=== PATIENT | male | born 1985 | race Caucasian/White ===

== ENCOUNTER 2016-11-12 02:18 | Emergency (ER) | payer OTHER ==
[~2016-11-12] VITALS: Ht 185.4 cm; Wt 111.8 kg
[2016-11-12 02:21] VITALS: TEMP 36.6; Ht 185.4 cm; Wt 111.8 kg
[2016-11-12] MEDS ORDERED: DIPHTHERIA/TETANUS/PERTUSSIS 0.5 ML SYR/VIAL IM. ONE (02:45)
[2016-11-12 02:54] LABS: BASO % 0.1 %; BASO ABS # 0.01 K/uL (0-0.2); COMPLETE YES; HEMATOCRIT 44.7 % (42-52); IG% 0.2 %; LYMPH % 32.7 %; MEAN CELL VOLUME 93.3 fL (80-100); MEAN CORPUSCULAR HEMOGLOBIN 33.2 pg (25-34); MEAN CORPUSCULAR HGB CONC 35.6 g/dl (32-36); MEAN PLATELET VOLUME 9.3 fL (7.4-10.4); MONO % 11.8 %; NEUT % 52.2 %; PLATELET COUNT 334 K/uL (130-400); RED BLOOD COUNT 4.79 M/uL (4.7-6.1); WHITE BLOOD COUNT 8.57 K/uL (4.8-10.8)
[2016-11-12 02:59] VITALS: O2SAT 97
[2016-11-12 03:11] LABS: ALT/SGPT 132 U/L (12-78); AST/SGOT 59 U/L (15-37); BLOOD UREA NITROGEN 12 mg/dl (7-18); BUN/CREATININE RATIO 11.8 (10-20); CALCIUM 8.6 mg/dl (8.5-10.1); CARBON DIOXIDE 31 mmol/L (21-32); CHLORIDE 107 mmol/L (98-107); GLUCOSE 86 mg/dl (70-99); POTASSIUM 3.7 mmol/L (3.5-5.1); SODIUM 143 mmol/L (136-145)
[2016-11-12 03:22] LABS: ALKALINE PHOSPHATASE 91 U/L (45-117)
[2016-11-12] MEDS ORDERED: BUPR1SUB23 PO (03:39)
[2016-11-12] MEDS ORDERED: PRLSR20 PO (03:39)
[2016-11-12] MEDS ORDERED: TEMA15CA4 PO (03:39)
[2016-11-12] MEDS ORDERED: RTL20 PO (03:39)
[2016-11-12 03:54] LABS: LYME DISEASE AB IGG NEG (NEG)
[2016-11-12 04:12] LABS: LYME DISEASE AB IGM POS (NEG)
[2016-11-12] MEDS ORDERED: DOXYCYCLINE HYCLATE 100 MG CAP PO ONE (04:30)
[2016-11-12 04:49] LABS: URINE APPEARANCE CLEAR (CLEAR); URINE BILIRUBIN NEG (NEG); URINE COLOR DK YELLOW; URINE NITRITE NEG (NEG); URINE PH 7.5 (4.5-7.5); URINE SPECIFIC GRAVITY 1.034 (1.000-1.030); UROBILINOGEN NEG (NEG)
--- NOTE | 2016-11-12 04:56 | EMERGENCY ROOM VISIT NOTE ---
History First contact with patient: 02:27 Chief Complaint: BITE Stated Complaint: BITE ON LEG(TICK/SPIDER),AND CRISTOPHER NAIL PUNC/HAND History of Present Illness The patient is a 31 year old male who presents to the Emergency Room with complaints of fatigue, difficulty sleeping, lack of energy for the past several months who thinks he might of been bitten by a tick and the other day he accidentally got Punctured with a resting nail since he is rebuilding his house. 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 He has not followed up recently with his assistant wrestling coach. He states he had a normal stress test in the past. No ablation. Patient denies chest pain, dyspnea, fever, chills, nausea, vomiting, diarrhea. Review of Systems See HPI for pertinent positives & negatives. A total of 10 systems reviewed and were otherwise negative. Past Medical/Surgical History WPW Social History Smoking Status: Current Every Day Smoker Drug Use: none Marital Status: single Housing Status: lives alone Occupation Status: student Current/Historical Medications Scheduled Buprenorphine Hcl-Naloxone Hcl (Suboxone 8-2 Mg), 8 MG PO BID Methylphenidate (Ritalin), 20 MG PO TID Omeprazole (Prilosec), 20 MG PO DAILY Scheduled PRN Temazepam (Restoril), 15 MG PO HS PRN for Sleep Allergies Coded Allergies: Cat Dander (Verified Allergy, Mild, SNEEZING,EYES PUFFY, 11/12/16) Physical Exam Vital Signs Date Time Temp Pulse Resp B/P Pulse Ox O2 Delivery O2 Flow Rate FiO2 11/12/16 04:16 87 20 133/94 98 Room Air 11/12/16 03:05 93 11/12/16 03:00 82 14 146/76 97 Room Air 91 145/93 94 130/81 11/12/16 02:59 97 Room Air 11/12/16 02:21 36.6 105 16 132/87 96 Room Air Physical Exam VITALS: Vitals are noted on the nurse's note and reviewed by myself. Vital signs stable. GENERAL: Anxious-appearing male, in no acute distress, nondiaphoretic, well- developed well-nourished. SKIN: Right hand with small puncture wound in between the first and second web space with no obvious signs of infection, right thigh with small bug bite is within excoriated that is erythematous concerning for secondary cellulitis The rest of the skin was without rashes, erythema, edema, or bruising. There is no tenting of the skin. Capillary reflex less than 2 seconds. HEAD: Normocephalic atraumatic. EARS: External auditory canals clear, tympanic membranes pearly matute without erythema or effusion bilaterally. EYES: Pupils equal round and reactive to light and accommodation. Conjunctivae without injection, sclerae without icterus. Extraocular movements intact. NOSE: Patent, turbinates without inflammation or discharge. MOUTH: Mucous membranes moist. Pharynx without erythema or exudate. Uvula midline. Airway patent. Tongue does not deviate. NECK: Supple without nuchal rigidity. No lymphadenopathy. No thyromegaly. Cervical spine is nontender. No JVD. HEART: Regular rate and rhythm without murmurs gallops or rubs. LUNGS: Clear to auscultation bilaterally without wheezes, rales or rhonchi. No dullness to percussion. No retractions or accessory muscle use. ABDOMEN: Positive bowel sounds x 4. Normal tympanic percussion. Soft, nontender, without masses or organomegaly. Fountain sign negative. No guarding or rebound tenderness. MUSCULOSKELETAL: No muscle atrophy, erythema, or edema noted. 5 out of 5 strength throughout. Extremities nontender to palpation. NEURO: Patient was alert and oriented to person place and time. Normal sensation to light and sharp touch. No focal neurological deficits. Medical Decision & Procedures Laboratory Results 11/12/16 02:40 Red Blood Count 4.79, Mean Corpuscular Volume 93.3, Mean Corpuscular Hemoglobin 33.2, Mean Corpuscular Hemoglobin Concent 35.6, Mean Platelet Volume 9.3, Neutrophils (%) (Auto) 52.2, Lymphocytes (%) (Auto) 32.7, Monocytes (%) (Auto) 11.8, Eosinophils (%) (Auto) 3.0, Basophils (%) (Auto) 0.1, Neutrophils # (Auto ) 4.47, Lymphocytes # (Auto) 2.80, Monocytes # (Auto) 1.01, Eosinophils # (Auto ) 0.26, Basophils # (Auto) 0.01 11/12/16 02:40 Test 11/12/16 02:40 11/12/16 02:50 11/12/16 04:15 11/12/16 04:26 White Blood Count 8.57 K/uL (4.8-10.8) Red Blood Count 4.79 M/uL (4.7-6.1) Hemoglobin 15.9 g/dL (14.0-18.0) Hematocrit 44.7 % (42-52) Mean Corpuscular Volume 93.3 fL (80-100) Mean Corpuscular Hemoglobin 33.2 pg (25-34) Mean Corpuscular Hemoglobin Concent 35.6 g/dl (32-36) Platelet Count 334 K/uL (130-400) Mean Platelet Volume 9.3 fL (7.4-10.4) Neutrophils (%) (Auto) 52.2 % Lymphocytes (%) (Auto) 32.7 % Monocytes (%) (Auto) 11.8 % Eosinophils (%) (Auto) 3.0 % Basophils (%) (Auto) 0.1 % Neutrophils # (Auto) 4.47 K/uL (1.4-6.5) Lymphocytes # (Auto) 2.80 K/uL (1.2-3.4) Monocytes # (Auto) 1.01 K/uL (0.11-0.59) Eosinophils # (Auto) 0.26 K/uL (0-0.5) Basophils # (Auto) 0.01 K/uL (0-0.2) RDW Standard Deviation 44.9 fL (36.4-46.3) RDW Coefficient of Variation 13.0 % (11.5-14.5) Immature Granulocyte % (Auto) 0.2 % Immature Granulocyte # (Auto) 0.02 K/uL (0.00-0.02) Anion Gap 5.0 mmol/L (3-11) Est Creatinine Clear Calc Drug Dose 141.5 ml/min Estimated GFR () 116.5 Estimated GFR (Non- 100.6 BUN/Creatinine Ratio 11.8 (10-20) Calcium Level 8.6 mg/dl (8.5-10.1) Total Bilirubin 0.3 mg/dl (0.2-1) Direct Bilirubin < 0.1 mg/dl (0-0.2) Aspartate Amino Transf (AST/SGOT) 59 U/L (15-37) Alanine Aminotransferase (ALT/SGPT) 132 U/L (12-78) Alkaline Phosphatase 91 U/L (45-117) Total Protein 7.6 gm/dl (6.4-8.2) Albumin 4.3 gm/dl (3.4-5.0) Thyroid Stimulating Hormone (TSH) 2.300 uIu/ml (0.300-4.500) Lyme Disease IgG Antibody NEG (NEG) Medications Administered Medications (Trade) Dose Ordered Sig/West Route Start Time Stop Time Status Last Admin Dose Admin Diphtheria/ Pertussis/Tetanus Vacc (Adacel Inj) 0.5 ml ONCE ONCE IM. 11/12/16 02:45 11/12/16 02:46 DC 11/12/16 02:52 0.5 ML Doxycycline Hyclate (Vibramycin Cap) 100 mg ONE ONCE PO 11/12/16 04:30 11/12/16 04:31 DC 11/12/16 04:30 100 MG ED Course Prior records/ancillary studies reviewed and summarized above. Nursing notes reviewed. The patient's history was concerning for fatigue, lack of energy, stress, possible tick bite and puncture wound. Differential diagnosis: Etiologies such as metabolic, infection, hypo/hyperglycemia, electrolyte abnormalities, cardiac sources, intracerebral event, toxicologic, neurologic, as well as others were entertained. Physical examination: As above. ER treatment provided: IV Lock Wound care by nursing, tetanus, Augmentin On reassessment the patient felt better. Diagnostics interpretation by me: ECG: Normal sinus, short ID interval, delta wave, no acute ST-T wave changes, rate of 97. Impression normal sinus rhythm with WPW interpreted by myself The labs revealed a Lyme's test positive and sent for Western blot, hepatitis panel pending Stable H&H Imaging studies: Chest x-ray with no acute consolidation, pneumothorax or free air per my interpretation Exam and history seem consistent with possible Lyme's disease. Patient was neurovascularly and neurologically intact. He was strongly encouraged to follow -up with his assistant wrestling coach for his WPW. He was started on antibiotics. He was advised follow-up family care for test results. Patient did not want to wait for hepatitis screen and states he sees family doctor for this. He was advised to return to the ER immediately for headache, fevers, neck stiffness, worsening signs or symptoms or as needed. By the evaluation outlined above emergent etiologies such as infection, electrolyte abnormalities, cardiac sources, intracerebral event, toxologic, neurologic, abnormalities blood glucose, metabolic, as well as others were deemed relatively unlikely. The pt informed about the findings as listed above. All questions were answered and pleased with the treatment. Return instructions were outlined and the patient was discharged in stable condition. Outpatient prescription management: Doxycycline Referral: The patient was referred back to his assistant wrestling coach, GI doctor and primary care physician for follow-up in 2 to 3 days for a recheck of the current condition. Case reviewed with my attending. Medical Decision As above Impression Primary Impression: Lyme disease Additional Impressions: Fatigue Mnsvo-Btqxgwxty-Sbebe syndrome Departure Information Dispostion Home / Self-Care Condition GOOD Referrals No Doctor, Assigned (PCP) Patient Instructions My [facility] Additional Instructions Antibiotic ointment and bandage to the areas until healed. Follow up with family doctor or return for any signs of infection (increasing redness, swelling , drainage, or fever). Keep covered when in sun until fully healed then SPF 50 or higher until scar healed. Doxycycline 100mg: Take one pill twice daily for 14 days for your infection. Take with food, but avoid dairy. Avoid prolonged sun exposure since this medication makes you temporarily more susceptible to sunburns. All antibiotics can cause diarrhea. If this occurs and you feel worse or it does not resolve in 1-2 days follow up with your doctor or return to the Emergency Department as this could be signs of serious underlying problems. Any medication can cause an allergic reaction, stop the pills immediately and return to the ER for rash, hives, breathing difficulties, or swelling. Ibuprofen(Motrin, Advil) may be used for fever or pain. Use 600mg every six hours as needed. Take with food. Avoid using more than 2400mg in a 24 hour period. Do not use 2400mg per day for more than three consecutive days without physician direction. Prolonged inappropriate use can lead to stomach upset or ulcers. (AND/OR) Acetaminophen(Tylenol) may be used for fever or pain. Use 1000mg every six hours as needed. Avoid using more than 3000mg in a 24 hour period. Warm compresses to the affected area 4 times daily for 15-20 minutes. Rest and drink plenty of fluids. Continue current medications. Return to the ER for severe pain, persistent fevers, spreading redness, or any worsening of your condition. Follow up with your primary physician within 2-3 days for a recheck of the current condition and for lab test results and hepatitis. Follow up with your assistant wrestling coach region repeat IV and your GI Problem Qualifiers
[2016-11-12] MEDS ORDERED: DOXY100C2 PO (04:59)
[2016-11-12 05:06] VITALS: BP 151/83; PULSE 88; O2SAT 98
[2016-11-12 05:13] LABS: PARTIAL THROMBOPLASTIN RATIO 1.1; PROTHROMBIN TIME (PATIENT) 10.7 SECONDS (9.0-12.0)
[2016-11-12 05:16] LABS: MANUAL MICROSCOPIC REQUIRED? NO; REVIEW REQ? NO; SULFASALICYLIC ACID NEG (NEG)
--- NOTE | 2016-11-12 07:12 | DIAGNOSTIC IMAGING REPORT ---
CHEST 2 VIEWS ROUTINE CLINICAL HISTORY: Fatigue. COMPARISON STUDY: No previous studies for comparison. FINDINGS: Lung volumes are mildly increased. There is no consolidation to suggest pneumonia and there is no evidence of pulmonary edema. Cardiac size is normal. Mediastinal contours are normal. IMPRESSION: 1. No acute cardiopulmonary findings. 2. Mild lung hyperexpansion. Electronically signed by: Conrado Worrell M.D. 11/12/2016 7:10 AM Dictated Date/Time: 11/12/2016 7:09 AM
[2016-11-18 20:46] LABS: 18KDIGG BAND NONREACTIVE (NONREACTIVE); 23KDIGG BAND NONREACTIVE (NONREACTIVE); 23KDIGM BAND REACTIVE (NONREACTIVE); 28KDIGG BAND NONREACTIVE (NONREACTIVE); 30KDIGG BAND NONREACTIVE (NONREACTIVE); 39KDIGG BAND NONREACTIVE (NONREACTIVE); 39KDIGM BAND NONREACTIVE (NONREACTIVE); 41KDIGG BAND REACTIVE (NONREACTIVE); 41KDIGM BAND NONREACTIVE (NONREACTIVE); 45KDIGG BAND NONREACTIVE (NONREACTIVE); 58KDIGG BAND NONREACTIVE (NONREACTIVE); 66KDIGG BAND NONREACTIVE (NONREACTIVE); 93KDIGG BAND NONREACTIVE (NONREACTIVE)
== END 2016-11-12 05:07 | disposition home or self-care (01) ==
LOC: C.EDB 02:19
DX: A69.20 Lyme disease, unspecified (principal); R53.83 Other fatigue; I45.6 Pre-excitation syndrome; Z23 Encounter for immunization; F17.200 Nicotine dependence, unspecified, uncomplicated; Z79.899 Other long term (current) drug therapy; Z91.09 Other allergy status, other than to drugs and biological substances

== ENCOUNTER → 2017-10-25 | Day surgery (SDC) | payer OTHER ==
[2017-09-29 14:50] VITALS: BMI 31.0
--- NOTE | 2017-09-30 13:23 | Progress Note ---
Progress Note Date of Service Sep 30, 2017. Progress Note Spoke to patient via phone about his WPW. Patient denies syncopal episodes or chest pain, but states that he has been unable to work out secondary to his umbilical hernia. Patient states he has not seen a hospitality associate in years. Anesthesia is requesting that the patient have cardiac clearance prior to planned surgery. Dr. Conley's office was contacted and will set up a referral to cardiology. I spoke to Dr. Conley and let him know that the case would need to be postponed. I spoke to the patient who was upset but is willing to reschedule the surgery after seeing cardiology. Oksana Jim MD, PhD
[2017-10-19 13:51] VITALS: BMI 31.0
[~2017-10-25] VITALS: Ht 188 cm; Wt 109.1 kg
[~2017-10-25] MED LIST: ASPCH81X PO; ATROPINE SULFATE 0.1 MG/ML 5ML SYR IV PRN; BUPIVACAINE 0.5 % 5 MG/1 ML MPF 30ML VIAL ONE; CEFAZOLIN 2000MG IV PUSH 15 ML IV SCH; CEFAZOLIN SOD 1 GM VIAL ONE; DEXAMETHASONE SOD INJ 4 MG/ML VIAL ONE; EpHEDrine SULFATE INJ 50 MG/ML AMP IV PRN; FENTANYL CITRATE INJ 50 MCG/1 ML 2 ML VIAL IV PRN; FENTANYL CITRATE INJ 50 MCG/1 ML 2 ML VIAL ONE; FLUMAZENIL 0.1 MG/1 ML 10 ML VIAL IV PRN; HYDROmorphone INJ 0.5 MG/0.5 ML SYR ONE; HYDROmorphone INJ 2 MG/ML SYR/VIAL IV PRN; LABETALOL HCL IV 5 MG/ML 20ML IV PRN; LABETALOL HCL IV 5 MG/ML 20ML IV STA; LACTATED RINGER'S 1000ML 1,000 ML IV SCH; LIDOCAINE HCL 1% 20 ML VIAL ONE; LIDOCAINE HCL 2% 2 ML VIAL (20MG/ML) ONE; MIDAZOLAM HCL 1 MG/ML 2ML VIAL ONE; MULT-506 PO; NALOXONE HCL 0.4 MG/1 ML VIAL/CARP IV PRN; ONDANSETRON INJ 2 MG/ML 2 ML VIAL IV PRN; ONDANSETRON INJ 2 MG/ML 2 ML VIAL ONE; OXYC1TAB3 PO; OXYCODONE HCL IR 5 MG TAB (IMMEDIATE RELEASE) PO PRN; PATIENT'S HEIGHT AND/OR WEIGHT NEEDED SCH; PRLSR20 PO; PROMETHAZINE HCL INJ 12.5 MG in SODIUM CHLORIDE 0.9% 50ML 50 ML IV PRN; PROPOFOL IV EMULSION 10 MG/ML 20 ML VIAL ONE
[2017-10-25 05:42] VITALS: BP 162/107; PULSE 104; TEMP 37.2; O2SAT 96; Ht 188 cm; Wt 109.1 kg
--- NOTE | 2017-10-25 06:47 | History & Physical Bridge Note ---
H&P Re-Evaluation Bridge Note: I have examined the patient, reviewed the History & Physical and in the interval since the performance of the History & Physical I have noted the following changes of clinical significance: No changes noted
--- NOTE | 2017-10-25 07:48 | [facility] Operative Report ---
Operative Report Operative Date October 25, 2017. Pre-Operative Diagnosis Umbilical Hernia Post-Operative Diagnosis Same Procedure(s) Performed Open Umbilical Hernia Repair Surgeon Dr Conley Research Analyst Surgeon(s) None Estimated Blood Loss 10ML Findings 1.5 cm defect , 4 cm sac Specimens A. Hernia sac and contents Drains None Anesthesia Type General Complication(s) none Disposition Recovery Room / PACU I attest to the content of the Intraoperative Record and any orders documented therein. Any exceptions are noted below.
--- NOTE | 2017-10-25 07:55 | Discharge Instructions ---
Discharge Instructions Date of Service October 25, 2017. Visit Reason for Visit: Umbilical Hernia Discharge Discharge Diagnosis / Problem: umbilical hernia Discharge Goals Goal(s): Decrease discomfort, Improve function, Improve disease control Activity Recommendations Activity Limitations: as noted below Lifting Limitations: no more than 25 pounds (for 4 weeks) Exercise/Sports Limitations: until after follow-up appointment May Resume Sexual Activity: when tolerated Shower/Bathe: tomorrow Driving or Machine Use: resume 3 days after discharge Anesthesia . Post Anesthesia Instructions: If you have had General Anesthesia or IV Sedation: * Do not drive today. * Resume driving when surgeon permits. * Do not make important decisions or sign legal documents today. * Call surgeon for: 1. Temperature elevations greater than 101 degrees F. 2. Uncontrollable pain. 3. Excessive bleeding. 4. Persistent nausea and vomiting. 5. Medication intolerance (nausea, vomiting or rash). * For nausea and vomiting use only clear liquids such as: tea, soda, bouillon until nausea subsides, then gradually increase diet as tolerated. * If you have any concerns or questions, call your surgeon's office. If physician is unavailable and it is an emergency, call 911 or go to the nearest emergency room. . Instructions / Follow-Up Instructions / Follow-Up SPECIAL CARE INSTRUCTIONS: * Cover incisions and change daily for comfort/drainage. * May use ibuprofen for pain as tolerated. * Expect some swelling and bruising. Call your doctor if: * Temperature above 101 degrees * Pain not relieved by pain medicine ordered * There is increased drainage or redness from any incision * You have any unanswered questions or concerns [phone]. FOLLOW UP VISIT: If not already scheduled, please call the office for a follow-up visit. for next week- checkup, some suture removal OFFICE PHONE NUMBER: Dr. Conley Office Diet Recommendations Recommended Home Diet: resume previous diet Procedures Procedures Performed: Open Umbilical Hernia Repair Pending Studies Studies pending at discharge: no Medical Emergencies . Who to Call and When: Medical Emergencies: If at any time you feel your situation is an emergency, please call 911 immediately. . Non-Emergent Contact Non-Emergency issues call your: Primary Care Provider, Surgeon . . "Provider Documentation" section prepared by Jordon Conley. .
--- NOTE | 2017-10-25 09:11 | Anesthesiology Progress Note ---
Anesthesia Post Op Note Date & Time October 25, 2017 at 09:11 Vital Signs Pain Intensity: 7.5 Vital Signs Past 12 Hours Date Time Temp Pulse Resp B/P (MAP) Pulse Ox O2 Delivery O2 Flow Rate FiO2 10/25/17 08:44 36.9 91 16 139/100 (105) 95 Nasal Cannula 3 10/25/17 08:30 132/102 10/25/17 08:29 93 19 10/25/17 08:29 93 19 95 10/25/17 08:25 141/101 10/25/17 08:24 92 16 94 10/25/17 08:24 92 16 10/25/17 08:21 143/105 10/25/17 08:19 93 26 10/25/17 08:19 92 26 95 10/25/17 08:15 152/90 10/25/17 08:14 92 22 150/103 96 10/25/17 08:14 92 22 10/25/17 08:10 140/102 10/25/17 08:09 90 15 10/25/17 08:09 90 15 95 10/25/17 08:05 147/97 10/25/17 08:04 92 18 10/25/17 08:04 92 18 97 10/25/17 08:00 141/104 10/25/17 07:59 93 13 10/25/17 07:59 92 13 95 10/25/17 07:55 139/89 10/25/17 07:54 36.3 88 14 139/89 (96) 95 Oxymask 10 10/25/17 07:54 89 17 10/25/17 07:54 88 17 94 10/25/17 05:42 37.2 104 18 162/107 (125) 96 Room Air Notes Mental Status: alert / awake / arousable, participated in evaluation Pt Amnestic to Procedure: Yes Nausea / Vomiting: adequately controlled Pain: adequately controlled Airway Patency, RR, SpO2: stable & adequate BP & HR: stable & adequate Hydration State: stable & adequate Anesthetic Complications: no major complications apparent
[2017-10-25 09:38] VITALS: BP 128/88; PULSE 91; TEMP 37.1; O2SAT 92
[2017-10-25 10:08] VITALS: BP 143/99; PULSE 101; TEMP 37.1; O2SAT 92
--- NOTE | 2017-10-25 10:55 | OPERATIVE REPORT ---
DATE OF OPERATION: 10/25/2017 NAME OF OPERATION: Open umbilical hernia repair. PREOPERATIVE DIAGNOSIS: Umbilical hernia. POSTOPERATIVE DIAGNOSIS: Umbilical hernia with 1.5 cm defect and 4 cm sac. STAFF SURGEON: Jordon Conley MD ANESTHESIA: General LMA with 1% plain lidocaine. PROCEDURE: The patient was brought in the operating room and placed on the operating table in supine position. Pneumatic stockings, orogastric tube were placed. His abdomen was prepped and draped in usual fashion. 0.5% plain Marcaine was used to anesthetize skin and subcutaneous tissue. Incision was made just above the umbilicus, carrying dissection down, identifying the hernia sac which was approximately 4 cm in diameter. It was opened; it contained what appeared to be preperitoneal adipose tissue, part of which was excised and then the remainder reduced. The defect was approximately 1.5 cm in diameter. It was closed using interrupted 0 Ethibond suture. The umbilicus was reattached to the fascia using 2-0 chromic suture and then the subcutaneous tissue reapproximated using 2-0 plain suture and then the skin reapproximated using 5-0 Prolene suture. The patient was transferred to recovery room in stable condition. I attest to the content of the Intraoperative Record and any orders documented therein. Any exception s are noted below.
== END | disposition home or self-care (01) ==
LOC: C.ACU 05:13
PROVIDERS: ATTEND Surgery
DX: K42.9 Umbilical hernia without obstruction or gangrene (principal); K21.9 Gastro-esophageal reflux disease without esophagitis; J45.909 Unspecified asthma, uncomplicated; F32.9 Major depressive disorder, single episode, unspecified; F19.10 Other psychoactive substance abuse, uncomplicated; E78.5 Hyperlipidemia, unspecified; E66.9 Obesity, unspecified; B19.20 Unspecified viral hepatitis C without hepatic coma; I45.6 Pre-excitation syndrome; Z81.8 Family history of other mental and behavioral disorders; Z84.89 Family history of other specified conditions; Z80.0 Family history of malignant neoplasm of digestive organs; F17.200 Nicotine dependence, unspecified, uncomplicated; Z79.82 Long term (current) use of aspirin; Z79.899 Other long term (current) drug therapy

== ENCOUNTER 2017-10-31 01:47 | Emergency (ER) | payer OTHER ==
[~2017-10-31] VITALS: Ht 182.9 cm; Wt 10.0 kg
[~2017-10-31 01:47] MED LIST changes: -ATROPINE SULFATE 0.1 MG/ML 5ML SYR IV PRN; -BUPIVACAINE 0.5 % 5 MG/1 ML MPF 30ML VIAL ONE; -CEFAZOLIN 2000MG IV PUSH 15 ML IV SCH; -CEFAZOLIN SOD 1 GM VIAL ONE; -DEXAMETHASONE SOD INJ 4 MG/ML VIAL ONE; -EpHEDrine SULFATE INJ 50 MG/ML AMP IV PRN; -FENTANYL CITRATE INJ 50 MCG/1 ML 2 ML VIAL IV PRN; -FENTANYL CITRATE INJ 50 MCG/1 ML 2 ML VIAL ONE; -FLUMAZENIL 0.1 MG/1 ML 10 ML VIAL IV PRN; -HYDROmorphone INJ 0.5 MG/0.5 ML SYR ONE; -HYDROmorphone INJ 2 MG/ML SYR/VIAL IV PRN; -LABETALOL HCL IV 5 MG/ML 20ML IV PRN; -LABETALOL HCL IV 5 MG/ML 20ML IV STA; -LACTATED RINGER'S 1000ML 1,000 ML IV SCH; -LIDOCAINE HCL 1% 20 ML VIAL ONE; -LIDOCAINE HCL 2% 2 ML VIAL (20MG/ML) ONE; -MIDAZOLAM HCL 1 MG/ML 2ML VIAL ONE; -NALOXONE HCL 0.4 MG/1 ML VIAL/CARP IV PRN; -ONDANSETRON INJ 2 MG/ML 2 ML VIAL IV PRN; -ONDANSETRON INJ 2 MG/ML 2 ML VIAL ONE; -OXYCODONE HCL IR 5 MG TAB (IMMEDIATE RELEASE) PO PRN; -PATIENT'S HEIGHT AND/OR WEIGHT NEEDED SCH; -PROMETHAZINE HCL INJ 12.5 MG in SODIUM CHLORIDE 0.9% 50ML 50 ML IV PRN; -PROPOFOL IV EMULSION 10 MG/ML 20 ML VIAL ONE
[2017-10-31 01:48] VITALS: TEMP 36.6; Ht 182.9 cm; Wt 10.0 kg
[2017-10-31] MEDS ORDERED: SODIUM CHLORIDE 0.9% 1000ML 1,000 ML IV STA (02:01)
[2017-10-31] MEDS ORDERED: MoRPHine SULFATE 10 MG/ML CARP/VIAL IV STA (02:01)
[2017-10-31] MEDS ORDERED: OPTIRAY 320 IV PRN (02:15)
--- NOTE | 2017-10-31 02:24 | EMERGENCY ROOM VISIT NOTE ---
History First contact with patient: 01:51 Chief Complaint: ABDOMINAL PAIN Stated Complaint: ABD BLOATING/PAIN S/P THORACIC SURGERY Nursing Triage Summary: Pt has abdominal surgery on wednesday. Pt states since the surgery his abdomen has been becoming distended, firm and he has severe pain. Pt has no appetite, nausea. History of Present Illness The patient is a 32 year old male who presents to the Emergency Room with complaints of abdominal pain. The patient reports that 5 days ago, he had an umbilical hernia repair. He states that he has had pain in his abdomen since then. He reports his abdomen feels very distended. He states he has a sharp pain all over his abdomen and rates the discomfort a 10/10. He has been unable to sleep due to the pain. He has been taking OxyIR but has not had any relief. He also reports that he has been drinking alcohol to try to cope with the pain. The pain is worse when he is walking or moving. He did have a small bowel movement this morning. He feels like he has had decreased urination. He denies any other medical problems. He does report he is currently taking penicillin for a tooth issue. He denies fever/chills, chest pain or shortness of breath. Review of Systems A complete 10 point review of systems was reviewed with the patient with pertinent positives and negatives as per history of present illness. All else were negative. Past Medical/Surgical History Medical Problems: (1) No significant active problems Social History Smoking Status: Current Every Day Smoker Drug Use: none Marital Status: single Housing Status: lives alone Occupation Status: student Current/Historical Medications Scheduled Aspirin (Aspirin Chewable), 81 MG PO DAILY Multivitamin (Multivitamin), 1 TAB PO QAM Omeprazole (Prilosec), 20 MG PO QAM Scheduled PRN Oxycodone Immediate Rel Tab (Roxicodone Ir), 1-2 TAB PO Q6H PRN for Pain Physical Exam Vital Signs Date Time Temp Pulse Resp B/P (MAP) Pulse Ox O2 Delivery O2 Flow Rate FiO2 10/31/17 08:51 106 20 187/114 97 10/31/17 08:00 105 20 10/31/17 05:57 120 18 175/110 98 Room Air 10/31/17 04:05 117 22 149/104 95 Room Air 10/31/17 01:48 36.6 136 20 147/85 95 Room Air Physical Exam VITALS: Vitals are noted on the nurse's note and reviewed by myself. Vital signs stable. GENERAL: This is a 32-year-old male, in no acute distress, nondiaphoretic, well- developed well-nourished. SKIN: There is a well-healing sutured surgical incision just superior to the umbilicus. No surrounding erythema or evidence of infection. MOUTH: Mucous membranes moist. HEART: Regular rate and rhythm without murmurs gallops or rubs. LUNGS: Clear to auscultation bilaterally without wheezes, rales or rhonchi. ABDOMEN: Positive bowel sounds x 4. The abdomen appears distended. There is diffuse abdominal tenderness without any focal tenderness. No guarding or rebound tenderness. NEURO: Patient was alert and oriented to person place and time. Medical Decision & Procedures ER Provider Diagnostic Interpretation: CT ABDOMEN & PELVIS With Contrast: No bowel obstruction or wall thickening Normal appendix Small amount of fluid and gas just deep to the umbilicus. No abscess. Fatty liver Radiologist: Fahad Palacios MD Laboratory Results 10/31/17 02:13 Red Blood Count 4.55, Mean Corpuscular Volume 92.5, Mean Corpuscular Hemoglobin 33.2, Mean Corpuscular Hemoglobin Concent 35.9, Mean Platelet Volume 8.9, Neutrophils (%) (Auto) 54.1, Lymphocytes (%) (Auto) 30.3, Monocytes (%) (Auto) 13.2, Eosinophils (%) (Auto) 1.9, Basophils (%) (Auto) 0.2, Neutrophils # (Auto ) 5.11, Lymphocytes # (Auto) 2.86, Monocytes # (Auto) 1.25, Eosinophils # (Auto ) 0.18, Basophils # (Auto) 0.02 10/31/17 02:13 Test 10/31/17 02:13 White Blood Count 9.45 K/uL (4.8-10.8) Red Blood Count 4.55 M/uL (4.7-6.1) Hemoglobin 15.1 g/dL (14.0-18.0) Hematocrit 42.1 % (42-52) Mean Corpuscular Volume 92.5 fL (80-100) Mean Corpuscular Hemoglobin 33.2 pg (25-34) Mean Corpuscular Hemoglobin Concent 35.9 g/dl (32-36) Platelet Count 284 K/uL (130-400) Mean Platelet Volume 8.9 fL (7.4-10.4) Neutrophils (%) (Auto) 54.1 % Lymphocytes (%) (Auto) 30.3 % Monocytes (%) (Auto) 13.2 % Eosinophils (%) (Auto) 1.9 % Basophils (%) (Auto) 0.2 % Neutrophils # (Auto) 5.11 K/uL (1.4-6.5) Lymphocytes # (Auto) 2.86 K/uL (1.2-3.4) Monocytes # (Auto) 1.25 K/uL (0.11-0.59) Eosinophils # (Auto) 0.18 K/uL (0-0.5) Basophils # (Auto) 0.02 K/uL (0-0.2) RDW Standard Deviation 45.5 fL (36.4-46.3) RDW Coefficient of Variation 13.4 % (11.5-14.5) Immature Granulocyte % (Auto) 0.3 % Immature Granulocyte # (Auto) 0.03 K/uL (0.00-0.02) Anion Gap 7.0 mmol/L (3-11) Est Creatinine Clear Calc Drug Dose 12.9 ml/min Estimated GFR () 95.7 Estimated GFR (Non- 82.6 BUN/Creatinine Ratio 26.1 (10-20) Calcium Level 9.0 mg/dl (8.5-10.1) Total Bilirubin 0.7 mg/dl (0.2-1) Aspartate Amino Transf (AST/SGOT) 157 U/L (15-37) Alanine Aminotransferase (ALT/SGPT) 296 U/L (12-78) Alkaline Phosphatase 135 U/L (45-117) Total Protein 8.9 gm/dl (6.4-8.2) Albumin 4.8 gm/dl (3.4-5.0) Globulin 4.1 gm/dl (2.5-4.0) Albumin/Globulin Ratio 1.2 (0.9-2) Medications Administered Medications (Trade) Dose Ordered Sig/West Route Start Time Stop Time Status Last Admin Dose Admin Sodium Chloride 1,000 ml @ 999 mls/hr Q1H1M STAT IV 10/31/17 02:01 5/13/18 03:01 DC 10/31/17 02:20 999 MLS/HR Morphine Sulfate (MoRPHine SULFATE INJ) 6 mg NOW STAT IV 10/31/17 02:01 10/31/17 02:04 DC 10/31/17 02:20 6 MG ED Course The patient was evaluated as above. Labs were drawn and IV access was obtained. Patient was medicated with 6 mg morphine IV for pain. CT scan was performed and read by fabien as above. The findings were discussed with the patient. He admits that he has been drinking alcohol at home to dull his pain. He repeatedly is stating that he is not a drug seeker. I was advised by nursing staff that the patient is requesting to leave. I spoke with the patient and explained that he would need to wait for a ride or wait for several hours since he received IV narcotics. He is not able to find a ride and will wait until morning for discharge. Discharge instructions were reviewed with the patient. The patient verbalized understanding of my assessment and treatment plan and was discharged home in good condition. Medical Decision Differential diagnosis includes postoperative infection, cellulitis, bowel obstruction, constipation, gastroenteritis, colitis, among others. The patient is a 32-year-old male who presents today complaining of abdominal pain following a hernia surgery. Labs revealed no leukocytosis or concerning anemia. Patient does have significant elevation of his LFTs. I discussed this with the patient and he repeatedly says "don't worry about that." He feels that this is related to his drinking. Upon review of the records, the patient does have history of hepatitis C and I strongly recommended that he follow-up with his primary care provider regarding these findings. A CT scan does not show any evidence of acute intra-abdominal findings. There is no bowel obstruction or abscess. Patient states that the OxyIR has not been adequately controlling his pain because he has a higher tolerance to narcotics than most people. He states he called the office on Wednesday and was aware that they would not give him any further pain medication and seems to be upset about this. He did express that he felt he was being treated like a drug-seeker. I recommended that the patient discontinue the use of alcohol to dull his pain. He was advised to follow-up with his PCP and surgeon. Because the patient was given IV morphine and was unable to find a ride, he was kept here for several hours before discharge. The patient's case was reviewed with Dr. Shah, ED attending physician, who agreed with my assessment and treatment plan. Based on the patient's presentation and work up, I feel the patient is stable for outpatient treatment. The patient was educated to return to the emergency department for any worsening of their current condition or new/concerning symptoms. He will follow up with his PCP and surgeon. Medication Reconcilliation Current Medication List: was personally reviewed by me Blood Pressure Screening Patient's blood pressure: Elevated blood pressure Blood pressure disposition: Elevated BP felt to be situational Impression Primary Impression: Postoperative abdominal pain Departure Information Dispostion Home / Self-Care Condition GOOD Referrals Richard Pathak D.O. (PCP) Jordon Conley M.D. Patient Instructions My [facility] Additional Instructions You have been treated in the Emergency Department for your Abdominal Pain. Laboratory results and imaging studies have ruled out any emergent causes for your abdominal pain which would warrant admission or surgery. For pain control, you can use the following [id number] medicines (if >12 yo): - Regular strength (200 mg/tab) Advil (ibuprofen) 1-2 tabs every 4-6 hours as needed. Do not exceed a dose of 3200 mg per day. Drink plenty of water and stay well hydrated. You may want to take a stool softener to help with regular bowel movements. Your liver function tests were elevated today. You need to follow-up with your primary care provider regarding this. You should avoid Tylenol and alcohol, as these are excreted through your liver. Contact your surgeon to schedule follow-up. Return to the emergency department if your symptoms persist despite treatment plan outlined above or if the following symptoms occur: Worsening pain, vomiting , fevers, or any other new/concerning symptoms.
[2017-10-31 02:54] LABS: BASO % 0.2 %; BASO ABS # 0.02 K/uL (0-0.2); EOS % 1.9 %; EOS ABS # 0.18 K/uL (0-0.5); HEMATOCRIT 42.1 % (42-52); HEMOGLOBIN 15.1 g/dL (14.0-18.0); IG# 0.03 K/uL (0.00-0.02); LYMPH % 30.3 %; LYMPH ABS # 2.86 K/uL (1.2-3.4); MEAN CELL VOLUME 92.5 fL (80-100); MEAN CORPUSCULAR HEMOGLOBIN 33.2 pg (25-34); MEAN CORPUSCULAR HGB CONC 35.9 g/dl (32-36); MEAN PLATELET VOLUME 8.9 fL (7.4-10.4); MONO % 13.2 %; MONO ABS # 1.25 K/uL (0.11-0.59); NEUT % 54.1 %; NEUT ABS # 5.11 K/uL (1.4-6.5); PLATELET COUNT 284 K/uL (130-400); RED CELL DISTRIBUTION WIDTH CV 13.4 % (11.5-14.5); RED CELL DISTRIBUTION WIDTH SD 45.5 fL (36.4-46.3); WHITE BLOOD COUNT 9.45 K/uL (4.8-10.8)
[2017-10-31 03:12] LABS: ALBUMIN 4.8 gm/dl (3.4-5.0); CREATININE 1.17 mg/dl (0.60-1.40); POTASSIUM 3.9 mmol/L (3.5-5.1)
[2017-10-31 03:14] LABS: TOTAL PROTEIN 8.9 gm/dl (6.4-8.2)
[2017-10-31 08:51] VITALS: BP 187/114; PULSE 106; O2SAT 97
--- NOTE | 2017-10-31 09:09 | DIAGNOSTIC IMAGING REPORT ---
ABDOMEN AND PELVIS CT WITH IV CONTRAST CT DOSE: 1060.70 mGy.cm HISTORY: recent umbilical hernia repair, abdominal pain/distention TECHNIQUE: Multiaxial CT images of the abdomen and pelvis were performed following the use of intravenous contrast. A dose lowering technique was utilized adhering to the principles of ALARA. COMPARISON STUDY: None. FINDINGS: The lung bases are clear. No pneumoperitoneum. No pneumatosis. No fractures within the visualized osseous structures. Severe hepatic steatosis. The gallbladder, spleen, adrenal glands, pancreas, and kidneys are unremarkable. No retroperitoneal lymphadenopathy. No pelvic free fluid. Normal bladder. Suboptimal evaluation for bowel pathology due to the lack of intravenous and oral contrast. However, there is no definite bowel wall thickening or obstruction. Moderate well-formed stool seen within the ascending colon and transverse colon. Normal fluid and gas subcutaneous fat deep to the umbilicus. This measures 2.7 cm. Mild focal fat stranding within the omentum at the level of the umbilicus. This may represent fat necrosis related to postoperative change. There is skin thickening at the periumbilical location. No evidence for an umbilical hernia. Normal appendix. IMPRESSION: 1. Focal periumbilical skin thickening with a 2.7 cm gas and fluid collection within the subcutaneous fat deep to the umbilicus. There is also mild local fat stranding at the omentum deep to the umbilicus suggestive of fat necrosis. These findings favor recent postoperative change. However, a superimposed infection cannot be excluded. The 2.7 cm gas and fluid collection within the subcutaneous fat favors postoperative change given the lack of a surrounding enhancing wall. However, a developing abscess cannot be excluded. 2. Severe hepatic steatosis. 3. No evidence for a ventral hernia at this time. Electronically signed by: Dank Aquino M.D. 10/31/2017 9:08 AM Dictated Date/Time: 10/31/2017 9:02 AM
== END 2017-10-31 08:53 | disposition home or self-care (01) ==
LOC: C.EDB 01:48
DX: G89.18 Other acute postprocedural pain (principal); R10.9 Unspecified abdominal pain; F17.200 Nicotine dependence, unspecified, uncomplicated; Z88.0 Allergy status to penicillin; Z79.82 Long term (current) use of aspirin